=== PATIENT | female | born 1950 | race Caucasian/White ===

== ENCOUNTER 2024-05-31 05:53 | Day surgery (SDC) | payer MEDICARE, OTHER ==
[~2024-05-31] VITALS: Ht 170.2 cm; Wt 76.2 kg
[2024-05-31] VITALS (10 sets, daily range): BP systolic 113–144; BP diastolic 55–74
[~2024-05-31 05:53] MED LIST: ALLER-TEC10 MG PO; COZAAR50 MG PO; DIAZEPAM5 MG PO; GLUCOSAMINE1000 MG PO; LACTATED RINGER'S 1,000 ML IV SCH; MAGNESIUM200 MG PO; METFORMIN HCL500 M3 PO; MULTI-DAY PLUS1 EACH PO; OMEPRAZOLE20 MG PO; TRAZODONE HCL50 MG PO; [UNRECOGNIZED DRUG - OTHER] PO
[2024-05-31] MEDS ORDERED: Methylene Blue 100 MG/10 ML SDV ONE (06:38)
[2024-05-31] MEDS ORDERED: CEFAZOLIN SODIUM 2 GM/20 ML SYR IV SCH (07:00)
[2024-05-31] MEDS ORDERED: HEParin SOD (PORCINE) 5,000 UNIT/ML SDV SUB-Q SCH (07:00)
[2024-05-31] MEDS ORDERED: LIDOCAINE HCL 1% 5 ML SDV INJ ONE (07:00)
[2024-05-31] MEDS ORDERED: IBLOOD GLUCOSE TEST STRIP 1 EA TEST VI PRN ×2 (07:00→09:15)
[2024-05-31] MEDS ORDERED: ondansetron HCL 4 MG/2 ML VIAL ONE (07:13)
[2024-05-31] MEDS ORDERED: KETOROLAC TROMETHAMINE 30 MG/ML VIAL ONE (07:13)
[2024-05-31] MEDS ORDERED: DEXAMETHASONE SOD PHOS 4 MG/ML VIAL ONE (07:13)
[2024-05-31] MEDS ORDERED: propofoL 200 MG/20 ML VIAL ONE (07:13)
[2024-05-31] MEDS ORDERED: LIDOCAINE HCL 1% 30 ML SDV ONE (07:13)
[2024-05-31] MEDS ORDERED: MIDAZOLAM HCL 2 MG/2 ML VIAL ONE (07:13)
[2024-05-31] MEDS ORDERED: fentaNYL citrate 100 MCG/2 ML VIAL ONE (07:14)
[2024-05-31] MEDS ORDERED: ACETAMINOPHEN 1,000 MG/100 ML VIAL ONE (07:15)
[2024-05-31] MEDS ORDERED: dexmedeTOMIDine HCl 200 MCG/2 ML VIAL ONE (07:19)
--- NOTE | 2024-05-31 07:35 | NUR ---
PT NOT AVAILABLE FOR VISIT. PROVIDED PRAYER.
[2024-05-31] MEDS ORDERED: ePHEDrine sulfate 50 MG/ML AMP ONE (08:13)
--- NOTE | 2024-05-31 09:07 | NUR ---
05/31/24 0907 Khushbu Garsia PATIENT IS REPORTING 3/10 PAIN. BILL OGDEN ADMINISTERING FENTANYL.
[2024-05-31] MEDS ORDERED: ACETAMINOPHEN 500 MG TAB PO PRN (09:15)
[2024-05-31] MEDS ORDERED: NALOXONE HCL 0.4 MG SYR IV PRN (09:15)
[2024-05-31] MEDS ORDERED: IBUPROFEN 600 MG TAB PO PRN (09:15)
[2024-05-31] MEDS ORDERED: LACTATED RINGER'S 1,000 ML IV SCH (09:15)
[2024-05-31] MEDS ORDERED: ondansetron HCL 4 MG/2 ML VIAL IV PRN ×2 (09:15)
[2024-05-31] MEDS ORDERED: OXYCODONE/APAP 7.5/325 TAB PO PRN (09:15)
[2024-05-31] MEDS ORDERED: fentaNYL citrate 50 MCG/ML SDV IV PRN (09:15)
[2024-05-31] MEDS ORDERED: KETOROLAC TROMETHAMINE 30 MG/ML VIAL IV PRN (09:15)
--- NOTE | 2024-05-31 09:51 | NUR ---
8891 pt arrived to day surgery via streacher from pacu. pt awake and oriented. pt reports 4/10 tolerable pain. pt sitting upright, report taken from lm roberts. vitals taken, iv assessed. pt family in room. pt has pudding and ice water at bedside. call light within reach, and bed is low and locked.
[2024-05-31] MEDS ORDERED: SEVOFLURANE 250 ML BTL INH ONE (11:03)
--- NOTE | 2024-05-31 11:08 | NUR ---
PATIENT IN BED AT THIS TIME. HIGH SCHOOL DIRECTOR CHARTED VITALS, CHECKED DIONNE DRAIN. REPORTED FINDINGS TO RN. CALL LIGHT WITH IN REACH. NOTHING ELSE NEEDED AT THIS POINT.
--- NOTE | 2024-05-31 11:18 | NUR ---
PT TO FLOOR WITH RN KIRAN. PT AWAKE AND HAS DTR IN ROOM. DENIES MUCH PAIN RATES 2\10. DIONNE HAS CHAPO RED BLOOD EMPTIED FOR 25 IN PACU. VS STABLE. DRESSING CDI.
--- NOTE | 2024-05-31 11:19 | NUR ---
1030 hourly rounding done with patient. vitals taken. iv assessed. pt reports tolerable 4/10 pain but would like pain medication so that it does not get worse. 1033 pain medicine given per emar. 1105 MEDSUR ROOM AVALIABLE, PT TRANSFERRED TO ROOM 109 FOR EXTENDED OBSERVATION. REPORT GIVEN TO KALPANA STRONG RN. IV IN PLACE SALINE LOCKED IN L WRIST. DIONNE DRAIN IN PLACE AND DRAINING. PT REPORTING TOLERABLE PAIN AT THIS TIME. PT DAUGHTER AT BEDSIDE. PT ABLE TO AMBULATE TO BATHROOM AND VOID WHILE RN WAS IN ROOM. PT ABLE TO AMBULATE BACK TO BED WITHOUT ASSISTANCE. CARE TRANSFERRED AT THIS TIME, BED IS LOW AND LOCKED. CALL LIGHT WITHIN REACH AND PERSONAL ITEMS IN ROOM. DAUGHTER AT BEDSIDE.
--- NOTE | 2024-05-31 12:30 | NUR ---
PT UP TO RESTROOM VOIDED 150 LIGHT YELLOW URINE. EMPTIED DIONNE FOR 30 CHAPO RED BLOOD. VS ASSESSED. PT RESITUATED FOR LUNCH. DTR IN ROOM. SCDS IN PLACE.
--- NOTE | 2024-05-31 13:21 | NUR ---
PATIENT IN BED AT THIS TIME. BRANCH ASSISTANT CHARTED VITALS, I&O'S, AND EMPTIED DIONNE DRAIN. CALL LIGHT WITHIN REACH. NOTHING ELSE NEEDED AT THIS TIME.
[2024-05-31] MEDS ORDERED: ACETAMINOPHEN 500 MG TAB PO SCH (14:00)
--- NOTE | 2024-05-31 14:32 | NUR ---
PT LAYING IN BED VISITING WITH . VS TAKEN. PT REQUESTING PAIN MEDICATIONS- SANDRA WILLIS NOTIFIED. PT SBA AMBULATED TO BR, VOIDED 400 OUT. PT BACK IN BED. SCD'S CONNECTED, CALL LIGHT IN HAND, DENIES ANY FURTHER NEEDS.
[2024-05-31] MEDS ORDERED: METFORMIN HCL500 M1 PO (15:29)
--- NOTE | 2024-05-31 15:49 | NUR ---
MED REC COMPLETE
[2024-05-31] MEDS ORDERED: CEFAZOLIN SODIUM 2 GM/20 ML SYR IV ONE (16:00)
--- NOTE | 2024-05-31 16:18 | NUR ---
PT AMBULATED LAP IN BROWN WITH THIS RN AND AND SRT ELZBIETA. PT TOLERATED WELL. PAIN 2\10. ASSESSMENT COMPLETE.
--- NOTE | 2024-05-31 17:15 | NUR ---
PT GIVEN RECORD SHEET FOR TRACKING OUTPUT OF SUDHIR DRAIN. EDUCATED PT DRAIN.
--- NOTE | 2024-05-31 18:17 | NUR ---
PATIENT IN BED AT THIS TIME. BEER COOLER CHARTED VITALS AND I&O'S. CALL LIGHT WITHIN REACH, NO FURTHER NEEDS AT THIS TIME.
--- NOTE | 2024-05-31 19:15 | NUR ---
RECEIVED REPORT FROM SANDRA WILLIS. PT RESTING IN BED, DENIES NEEDS. DIONNE DRAIN W/ SANGUINOUS DRNG. IVF INFUSING. CALL LIGHT WITHIN REACH.
--- NOTE | 2024-05-31 20:30 | NUR ---
PT RESING COMFORTABLY IN BED. ASSISTED PT USE BR, SBA TO BR FOR IV POLE MANAGEMENT. VSS. REPORTS RIGHT BREAST PAIN 05/06, DENIES NEED FOR ADD'L MED. LSC. HRR. BTA. LBM TODAY. VOIDS WNL. RIGHT BREAST INC CDI. RUQ DIONNE DRAIN W/ SANGUINOUS DRNG. PT EDUCATION DONE FOR DIONNE CARE, PT UNDERSTANDS. LW IV W/ LR INFUSING. CPOX IN PLACE, RA TRIAL. CALL LIGHT WITHIN REACH.
--- NOTE | 2024-05-31 21:30 | NUR ---
CPOX SPD ALARMING. O2 SATS 89%. O2 REPLACED AT 1L. O2 SATS 92%. NO FURTHER NEEDS.
--- NOTE | 2024-05-31 23:19 | NUR ---
NEW BAG OF LR LIAM. PT REPORTS 4/10 PAIN TO RIGHT BREAST INC SITE AND NECK-PRN IV TORADOL ADMINISTERED PER EMAR. ASSISTED PT TO BR, VOIDS WNL. CALL LIGHT WITHIN REACH. CPOX IN PLACE.
--- NOTE | 2024-06-01 01:05 | NUR ---
PT SLEEPING SOUNDLY, APPEARS COMFORTABLE. CPOX AND 1L O2 IN PLACE.
--- NOTE | 2024-06-01 03:38 | NUR ---
PT CALLED FOR ASSIST TO BR. VOIDS WNL. PT EMPTIED OWN DIONNE DRAIN W/ SUPERVISION AND CUEING.
[2024-06-01 05:47] VITALS: BP 139/60
[2024-06-01 05:48] LABS: BASOPHILS 1.2 % (0-2); EOSINOPHILS 0.6 % (0-6); HEMATOCRIT 35.8 % (35.0-50.0); HEMOGLOBIN 12.2 g/dL (12.0-18.0); LYMPHOCYTES 22.6 % (24-44); MCHC 34.2 g/dl (30-36); MCV 96.5 fl (81-99); MONOCYTES 12.5 % (0-12); NEUTROPHILS 63.1 % (39-80); PLATELET COUNT 127 K/uL (140-440); RBC 3.71 M/ul (4.3-5.7); RDW 12.8 (10.5-15.0)
--- NOTE | 2024-06-01 06:03 | NUR ---
PT UP TO BR W/ SBA. VOIDS WNL. BRUSHED TEETH, COMBED HAIR AND WASHED FACE. UP IN RECLINER. COFFEE PROVIDED. O2 OFF, CPOX IN PLACE.
[2024-06-01 06:04] VITALS: BP 139/60
--- NOTE | 2024-06-01 07:20 | NUR ---
REPORT RECEIVED FROM PRINTED CIRCUIT BOARD PANELS DEBURRER RN. PATIENT AMBULATED TO BATHROOM FROM RECLINER. AMBULATED BACK TO RECLINER WITH 1 PA STAND BY ASSIST. PATIENT DENIES ANY FURTHER NEEDS CALL LIGHT WITHIN REACH.
--- NOTE | 2024-06-01 08:16 | NUR ---
RIGHT SIDE DIONNE DRAIN LEAKED SMALL AMOUNT OF BLOOD AROUND INSERTION SITE. DIONNE DRAIN STRIPPED, EMPTIED FOR 20ML OF SEROSANG DRAINAGE, SUCTION RE-ESTABLISHED, NEW GOWN ON PATIENT.
--- NOTE | 2024-06-01 08:23 | NUR ---
Patient called reporting bleeding from DIONNE drain. Primary nurse Jn was with another patient, charge nurse Belkys notified and entered room. Drain was emptied and area cleaned. A new gown was provided.
--- NOTE | 2024-06-01 08:53 | NUR ---
PATIENT RESTING IN RECLIENR WITH FAMILY AT BEDSIDE. DRESSING TO RIGHT CHEST REMAINS IN PLACE AND IS CDI. NOTED DRAINAGE TO DIONNE DRESSING. DRAINAGE REMAINS WITHIN DRESSINGS BOARDERS. PATIENT LUNGS CTA. HEART SOUNDS REGULAR. BOWEL TONES ACTIVE X 4. PATIENT AMBULATED TO BATHROOM VOID FOR QUNITY SUFFICIENT. NO FURTHER NEEDS CALL LIGHT WITHIN REACH.
--- NOTE | 2024-06-01 08:53 | NUR ---
PATIENT WAS IN HER CHAIR AT THIS TIME, WAITING FOR BREAKFAST. CALL LIGHT WITH IN REACH AND NOTHING ELSE NEEDED AT THIS TIME.
--- NOTE | 2024-06-01 09:00 | NUR ---
PATIENT REPORTS MILD PAIN OF 3/10. PRN ADMINSTERED SEE JUN.
[2024-06-01 09:05] VITALS: BP 137/62
--- NOTE | 2024-06-01 09:09 | NUR ---
PATIENT IN CHAIR AT THIS TIME. REGIONAL OPERATIONS MANAGER CHARTED VITALS AND I&O'S. CALL LIGHT WITH IN REACH, NOTHING ELSE NEEDED AT THIS TIME.
--- NOTE | 2024-06-01 09:45 | NUR ---
Spoke with Alona and her daughter, Beatriz. Pt plans on dc to home in [place] today. She denies any needs. She has access to a shower bench, walker and a cane. She denies financial issues. Most like home today after she sees Dr. Spencer. Pt waiting to be seen by Amanda for a fitting of her mastectomy prothesis.
--- NOTE | 2024-06-01 10:43 | NUR ---
UR CLINICAL REVIEW: 2 MN FOR VERSALUS- MEET CRITERIA FOR OBS STAY MEDICARE OBS 05/31/24 @ 0912 ORDER MATCHES REG NO AUTH REQUIRED PER MEDICARE GUIDELINES DISCHARGE TO HOME TODAY 06/02/24
--- NOTE | 2024-06-01 10:50 | NUR ---
IN TO ROUND ON PATIENT. RESTING IN RECLINER. DENIES ANY NEEDS AT THIS TIME. CALL LIGHT WITHIN REACH.
--- NOTE | 2024-06-01 11:00 | NUR ---
IN ROOM TO SEE PATIENT.
[2024-06-01] MEDS ORDERED: IBUPROFEN600 MG PO (11:14)
[2024-06-01] MEDS ORDERED: ACETAMINOPHEN500 MG PO (11:14)
[2024-06-01] MEDS ORDERED: OXYCODON-ACETA1 EAC2 PO (11:14)
--- NOTE | 2024-06-01 11:16 | OR ---
[facility] [address], [place] [address] Signed DATE OF OPERATION: 05/31/2024 SURGEON: Belgica Bello MD PREOPERATIVE DIAGNOSES: 1. 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 2. History of left breast cancer status post mastectomy. POSTOPERATIVE DIAGNOSES: 1. 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 2. History of left breast cancer status post mastectomy. PROCEDURES: 1. Injection of methylene blue dye for sentinel lymph node identification, right breast. 2. Right total mastectomy. 3. Right deep axillary lymph node biopsy. ANESTHESIA: General endotracheal; Aliya Oliveira CRNA. INDICATION: This 73-year-old white woman is from [place], [place] and a patient of ANNABELLE Long. It is notable that she had a left breast cancer in 1991 for which she underwent lumpectomy, but did not have postprocedure radiation therapy. This was managed in [place], [place]. She had recurrence in the left breast, underwent mastectomy at that time. She did not require chemotherapy or radiation therapy at that time. A recent screening mammogram identified a 2.1 cm group of suspicious microcalcifications in the upper outer aspect of the right breast. This mammogram was performed at [facility] in [facility]. Subsequent stereotactic biopsy was performed in [place] on May 04, 2024, by Dr. Papa Olivia showing a ductal carcinoma in situ, intermediate grade, ER NE positive. She has opted for a mastectomy as a primary method of treatment given her prior history of mastectomy and other issues. Edmondson lymph node biopsy to be obtained incidentally by methylene blue injection approach, though it was acknowledged that sentinel lymph node biopsy is not always necessary in the CIS unless intermediate or high-grade histology is noted. The risk of bleeding, infection, cosmetic deformity, wound healing problems, and need for additional treatment should invasive malignancy actually be identified were all reviewed with her and her family, they understand and wish to proceed. Electronically Signed By: BELGICA BELLO MD 06/01/24 1116 PATIENT NAME: BRAYAN VALDEZ OPERATIVE REPORT DATE OF : 46 REPORT #: [id number] PHYSICIAN: BELGICA BELLO MD PCP: DA MEYERS REPORT IS CONFIDENTIAL AND NOT TO BE RELEASED WITHOUT AUTHORIZATION [facility] [address], [place] [address] Signed FINDINGS: There was no palpable mass. The axilla was clinically negative on palpation. Methylene blue injection did have lymphatic uptake. Lymphatics extreme to the right axilla, but did not terminate an obvious lymph node. A mid upper axillary lymph node that was somewhat enlarged but not necessarily blue in color was identified and excised additionally. The axillary tail of Luther did have lymphatic blue dye within it and there may be small sentinel lymph nodes identified in that specimen on final evaluation. Cosmetic result following mastectomy was good. Both flaps were viable. A single drain was placed. DESCRIPTION OF PROCEDURE: The patient was brought to the operating room and given a general endotracheal anesthetic. Preoperative antibiotic Ancef was given. Sequential compression device stockings used and heparin subcutaneously administered. Injection in the right breast periareolar area at the 10 o'clock position of 1 mL of methylene blue dye was undertaken with obvious uptake of lymphatics. The right breast and chest wall were prepared with a chlorhexidine solution and draped sterilely. The area anticipating mastectomy was identified with a marking pen. An elliptical excision was undertaken in a largely transverse configuration including the nipple areolar complex. Superior and inferior flaps were developed with sharp dissection only, so as to avoid increased risk of seroma formation if using cautery. The breast was excised in the medial and inferior to lateral direction using electrocautery freeing the breast from the pectoralis muscle itself. Upon examination of the axilla blue lymphatic channels were noted into the axillary tissue and axillary tail of Sloan. Dissection did not identify clear evidence of blue lymph nodes, but probably some lymphatic tissue including lymph nodes were included in the excised axillary tail of Sloan. Additional examination of the axilla was undertaken with blunt dissection showing no sign of blue lymph nodes, but did show a dominant 1.5 cm lymph node in the mid axilla. This was clipped and excised and sent as a deep axillary lymph node. Irrigation was undertaken more fully with sterile water. Hemostasis was assured with clips with electrocautery or 3-0 silk suture as necessary. Through an inferolateral stab incision using a 15 blade, a 7 mm flat Brent drain was placed to incorporate the low axilla and superior and inferior flaps. The flaps were quite viable and of appropriate thickness. They were secured with interrupted 2-0 Vicryl and a running subcuticular 3-0 Vicryl was used for the skin. Steri-Strips were applied as was an Acticoat dressing. Drains applied to bulb suction. Blood loss was about 50 mL or less. Sponge, needle, and instrument counts reported as correct x3. She was extubated and taken to recovery room in good condition. Electronically Signed By: BELGICA BELLO MD 06/01/24 1116 PATIENT NAME: BRAYAN VALDEZ OPERATIVE REPORT DATE OF : 46 REPORT #: [id number] PHYSICIAN: BELGICA BELLO MD PCP: DA MEYERS REPORT IS CONFIDENTIAL AND NOT TO BE RELEASED WITHOUT AUTHORIZATION [place] [id number] [place] [address] Signed MD PATRICIA Oneil/FATOU /[id number] cc: ANNABELLE Long Copies: DA MEYERS ~ Electronically Signed By: BELGICA BELLO MD 06/01/24 1116 PATIENT NAME: BRAYAN VALDEZ OPERATIVE REPORT DATE OF : 46 REPORT #: [id number] PHYSICIAN: BELGICA BELLO MD PCP: DA MEYERS REPORT IS CONFIDENTIAL AND NOT TO BE RELEASED WITHOUT AUTHORIZATION
[2024-06-01 12:04] VITALS: BP 138/61
--- NOTE | 2024-06-01 12:23 | NUR ---
PATIENT DISCAHRGED WITH . EDUCATION COMPLETED WITH PATIENT ON DRAIN CARE. PATIENT ABLE TO DEMONSTRATE PROPER DRAIN CARE INCLUDING STRIPPING THE DRAIN.
--- NOTE | 2024-06-03 16:22 | PATH ---
[facility] [address] [place] [address] Signed THIS IS AN ADDENDUM REPORT SPECIMEN(S): A RIGHT BREAST SPECIMEN(S): B RIGHT AXILLARY LYMPH NODE SPECIMEN SOURCE: A. RIGHT BREAST B. RIGHT AXILLARY LYMPH NODE CLINICAL HISTORY: Right upper outer quadrant ductal carcinoma in situ. Stitch victoria axillary tab. FINAL PATHOLOGIC DIAGNOSIS: A. Breast, right, mastectomy: - Invasive mucinous carcinoma, see comment B. Lymph node, right axillary, excision: - One lymph node, negative for metastatic carcinoma (0/1) INVASIVE CARCINOMA OF THE BREAST: Resection Applies To: A SPECIMEN Procedure: Total mastectomy Specimen Laterality: Right TUMOR Tumor Site: Upper outer quadrant Histologic Type: Mucinous carcinoma Glandular (Acinar) / Tubular Differentiation: Score 1 Nuclear Pleomorphism: Score 1 Mitotic Rate: Score 1 Overall Grade: Grade 1 (scores of 3, 4 or 5) Tumor Size: Greatest dimension of largest invasive focus (Millimeters) - 8 mm Tumor Focality: Single focus of invasive carcinoma Ductal Carcinoma In Situ (DCIS): Present - Negative for extensive intraductal component (EIC) Architectural Patterns: Cribriform, Solid Nuclear Grade: Grade III (high) Necrosis: Present, focal (small foci or single cell necrosis) Number of Blocks with DCIS: 5 Number of Blocks Examined: 12 Lymphatic and / or Vascular Invasion: Not identified PATIENT NAME: BRAYAN SILVAN PATHOLOGY DATE OF : 46 REPORT #: [id number] PHYSICIAN: KASSI PATHOLOGY PCP: DA MEYERS REPORT IS CONFIDENTIAL AND NOT TO BE RELEASED WITHOUT AUTHORIZATION [facility] [address] [place], [place] [address] Signed Treatment Effect in the Breast: No known presurgical therapy MARGINS Margin Status for Invasive Carcinoma: All margins negative for invasive carcinoma Distance from Invasive Carcinoma to Closest Margin: Greater than - 2 mm Margin Status for DCIS: All margins negative for DCIS Distance from DCIS to Closest Margin: Greater than - 2 mm REGIONAL LYMPH NODES Regional Lymph Node Status: All regional lymph nodes negative for tumor Total Number of Lymph Nodes Examined (sentinel and non-sentinel): 1 pTNM CLASSIFICATION (AJCC 8th Edition) pT Category: pT1b pN Category: pN0 COMMENT: For part A, testing for ER/VT/HER2 has been ordered, and will be reported in addendum. A diagnostic alert is initiated by Dr. Parrish on 06/02/24. As part of [employer] Quality Improvement Program, this case was reviewed by another member of our pathology staff. BRP MICROSCOPIC EXAMINATION: Histologic sections of all submitted blocks are examined by light microscopy. These findings, together with the gross examination, support the pathologic diagnosis. GROSS DESCRIPTION: A. The specimen, labeled and designated "Blessing Silva, " and designated on the requisition "right breast tissue," is received in formalin and consists of 371 gram oriented right breast that is 16.4 x 13.5 x 4.6 cm. The 15.3 x 6.1 cm ellipse of skin has a eccentrically located, everted nipple. The skin surface is pink-pablo and wrinkled with a blue dye discoloration lateral to the nipple. A black suture identifies the axillary tab. The specimen is inked as follows: anterior-superior - blue; anterior-inferior - green; and posterior - black. The specimen is serially sectioned from medial to lateral revealing a 3.1 x 2.2 x 1.5 cm irregular, indurated fibroadipose tissue with areas of hemorrhage in the upper outer quadrant. The irregular fibrous tissue is 2.4 cm from the anterior skin, 1.2 cm from the posterior soft tissue margin, 0.9 cm from the superior soft PATIENT NAME: BRAYAN SILVA PATHOLOGY DATE OF : 46 REPORT #: [id number] PHYSICIAN: KASSI PATHOLOGY PCP: DA MEYERS REPORT IS CONFIDENTIAL AND NOT TO BE RELEASED WITHOUT AUTHORIZATION [facility] [address] [place], [place] [address] Signed tissue margin, 3.4 cm from the inferior soft tissue margin, 6.4 cm from the medial soft tissue margin, and 3.9 cm from the lateral soft tissue margin. A metallic clip is present within this area. Upon palpation of the lateral aspect of the breast no lymph are grossly identified. No discrete mass lesions are grossly identified. Approximately 90% of the specimen is a yellow-pablo greasy adipose tissue and 10% is a white-pablo rubbery fibrous tissue. Start Up Specialist sections are submitted in 12 cassettes. Cassette Summary: (A1) nipple and skin (A2) subareolar fibroadipose tissue (A3) posterior soft tissue resection margin closest to area of irregular fibrous tissue (A4-A5) irregular fibrous tissue to superior soft tissue resection margin, perpendicular (A6-A8) irregular of fibrous tissue, entirely submitted (clip in A7) (A9) fibroadipose tissue upper inner quadrant (A10) fibroadipose tissue upper outer quadrant (A11) fibroadipose tissue lower outer quadrant (A12) fibroadipose tissue lower inner quadrant Time of collection: 8:24 AM May 31, 2024. Time into formalin: 8:25 AM May 31, 2024. Processor load time: 6 PM June 01, 2024. Ischemic time: 1 minute Total fixation time in formalin: 33 hours 35 minutes The ASCO/CAP guidelines related to HER2 and hormone receptor testing in breast specimens have been met and the specimen has been placed in formalin within one hour and fixed in 10% neutral buffered formalin for 6 to 72 hours. B. The specimen, labeled and designated "Blessing Silva, RT AX lymph node," is received in formalin and consists of one pink-pablo possible lymph node that is 1.4 x 0.9 x 0.4 cm. The specimen is sectioned and entirely submitted in cassette B1. FB (under the direct supervision of a pathologist) The Gross Description was prepared using a voice recognition system. The report was reviewed for accuracy; however, sound-alike word errors, addition and/or deletions may occur. If there is any question about this report, please contact Client Services. ADDITIONAL NOTES: PATIENT NAME: BRAYAN SILVA PATHOLOGY DATE OF : 46 REPORT #: [id number] PHYSICIAN: KASSI VICKERS PCP: DA MEYERS REPORT IS CONFIDENTIAL AND NOT TO BE RELEASED WITHOUT AUTHORIZATION [address] [address] Signed Immunohistochemical and/or in situ hybridization studies if performed in this case included appropriate positive controls that reacted as expected. This test was developed and its performance characteristics determined by [employer]. It has not been cleared or approved by the U.S. Food and Drug Administration. The FDA has determined that such clearance or approval is not necessary. This test is used for clinical purposes. It should not be regarded as investigational or for research. [employer] is certified under the Clinical Laboratory Improvement Amendments of 1988 (CLIA) as qualified to perform high complexity clinical laboratory testing. PERFORMING LABORATORY: Technical component was performed by [facility], [address] [place] [address] (CLIA# [id number]). Professional interpretation was performed by [facility], [address] [place] [address] (CLIA#: [id number]). ADDITIONAL NOTES: Immunohistochemical and/or in situ hybridization studies if performed in this case included appropriate positive controls that reacted as expected. This test was developed and its performance characteristics determined by [employer]. It has not been cleared or approved by the U.S. Food and Drug Administration. The FDA has determined that such clearance or approval is not necessary. This test is used for clinical purposes. It should not be regarded as investigational or for research. [employer] is certified under the Clinical Laboratory Improvement Amendments of 1988 (CLIA) as qualified to perform high complexity clinical laboratory testing. Professional interpretation was performed by [facility], [address] [place] [id number] (CLIA#: [id number]). REASON FOR ADDENDUM: To add results of additional testing ADDENDUM PATHOLOGIC DIAGNOSIS: Breast Biomarker Reporting Template Applies To: A Test(s) Performed: Estrogen Receptor (ER) Status: Positive (greater than 10% of cells demonstrate nuclear positivity) Percentage of Cells with Nuclear Positivity: 91-100% PATIENT NAME: BRAYAN SILVA PATHOLOGY DATE OF : 46 REPORT #: [id number] PHYSICIAN: KASSI PATHOLOGY PCP: DA MEYERS REPORT IS CONFIDENTIAL AND NOT TO BE RELEASED WITHOUT AUTHORIZATION [facility] [address] [place], [place] [address] Signed Average Intensity of Staining: Strong Test Type: Food and Drug Administration (FDA) cleared (test / vendor) - Melissa Primary Antibody: SP1 Scoring System: No separate scoring system used Progesterone Receptor (PgR) Status: Positive Percentage of Cells with Nuclear Positivity: 91-100% Average Intensity of Staining: Strong Test Type: Food and Drug Administration (FDA) cleared (test / vendor) - Melissa Primary Antibody: 1E2 Scoring System: No separate scoring system used HER2 by Immunohistochemistry: Negative (Score 1+) Test Type: Food and Drug Administration (FDA) cleared (test / vendor) - Melissa Primary Antibody: 4B5 Cold Ischemia and Fixation Times: Meet requirements specified in latest version of the ASCO / CAP Guidelines Cold Ischemia Time (minutes): 1 min Fixation Time (hours): 33 hours Testing Performed on Block Number(s): A6 METHODS Fixative: Formalin BRP Diagnostician: Darin Parrish MD Pathologist Electronically Signed 06/03/2024 Copies: ~ PATIENT NAME: BRAYAN SILVA PATHOLOGY DATE OF : 46 REPORT #: [id number] PHYSICIAN: KASSI PATHOLOGY PCP: DA MEYERS REPORT IS CONFIDENTIAL AND NOT TO BE RELEASED WITHOUT AUTHORIZATION
== END 2024-06-01 12:25 | disposition home or self-care (01) ==
LOC: DS 05:53 → MS 10:55 → DS 06-01 12:25
PROVIDERS: ATTEND Surgery
PROC: 0HTT0ZZ Resection of Right Breast, Open Approach (ICD-10-PCS; principal; 2024-05-31 07:30)
DX: C50.411 Malignant neoplasm of upper-outer quadrant of right female breast (principal); J43.9 Emphysema, unspecified; M19.90 Unspecified osteoarthritis, unspecified site; E11.9 Type 2 diabetes mellitus without complications; I10 Essential (primary) hypertension; K21.9 Gastro-esophageal reflux disease without esophagitis; Z79.84 Long term (current) use of oral hypoglycemic drugs; Z79.899 Other long term (current) drug therapy; Z88.8 Allergy status to other drugs, medicaments and biological substances; Z85.3 Personal history of malignant neoplasm of breast; Z90.12 Acquired absence of left breast and nipple
CPT/HCPCS: 00400; 36415; 85025; 88305; 88307; 88309; 88360; A9270; J0131; J0690; J1100; J1644; J1885; J2250; J2405; J2704; J3010; J3490; J7121